=== PATIENT | male | born 1980 | race Hispanic/Latino ===

== ENCOUNTER 2021-06-17 07:02 | Day surgery (SDC) | payer BC ==
[2021-06-16 09:59] VITALS: BP 127/57
[~2021-06-17] VITALS: Ht 167.6 cm; Wt 92.1 kg
[2021-06-17] VITALS (15 sets, daily range): BP systolic 101–130; BP diastolic 49–82
[~2021-06-17 07:02] MED LIST: CEFAZOLIN SODIUM 2 GM VIAL IV SCH
[2021-06-17] MEDS ORDERED: LACTATED RINGERS 1000ML 1,000 ML IV ONE (07:25)
[2021-06-17] MEDS ORDERED: CEFAZOLIN SODIUM 1 GM VIAL ONE (07:25)
[2021-06-17] MEDS ORDERED: BUPIVACAINE/PF 0.25% 30ML VIAL IJ ONE (07:42)
[2021-06-17] MEDS ORDERED: LIDOCAINE HCL 1% 20 ML VIAL ONE (07:42)
[2021-06-17] MEDS ORDERED: COLL1CAP PO (07:51)
[2021-06-17] MEDS ORDERED: MULT-1203 PO (07:51)
[2021-06-17] MEDS ORDERED: KETAMINE 50MG/ML SYRINGE 50 MG/ML DISP.SYRIN IV ONE (08:08)
[2021-06-17] MEDS ORDERED: LIDOCAINE PF 100MG/5ML (2%) SYRINGE 5ML ONE (08:20)
[2021-06-17] MEDS ORDERED: GLYCOPYRROLATE 1 MG/5 ML SYRINGE ONE (08:20)
[2021-06-17] MEDS ORDERED: MIDAZOLAM HCL 1 MG/ML 2ML VIAL ONE (08:20)
[2021-06-17] MEDS ORDERED: PROPOFOL 10 MG/ML 20ML VIAL IV ONE (08:20)
[2021-06-17] MEDS ORDERED: FENTANYL CITRATE PF 50 MCG/1 ML 2ML VIAL ONE (08:41)
[2021-06-17] MEDS ORDERED: ONDANSETRON 4MG INJ ONE (08:58)
== END 2021-06-17 10:30 | disposition home or self-care (01) ==
LOC: DAH 07:02
PROVIDERS: ATTEND Urology
DX: Z30.2 Encounter for sterilization (principal); Z20.822 Contact with and (suspected) exposure to COVID-19; Q55.22 Retractile testis; Z80.42 Family history of malignant neoplasm of prostate
CPT/HCPCS: 55250; 87635; A4213; A4215; A4221; A4222; A4223; A4510; A4600; A4663; A6260; C9803; J0690; J2001; J2250; J2405; J2704; J3010; J3490 ×3; J7120 ×2